=== PATIENT | female | born 1980 | race Caucasian/White ===

== ENCOUNTER 2018-08-17 13:53 | Emergency (ER) | payer OTHER ==
[~2018-08-17] VITALS: Ht 154.9 cm; Wt 103.4 kg
[2018-08-17] MEDS ORDERED: [UNRECOGNIZED DRUG - OTHER] (14:17)
[2018-08-17] MEDS ORDERED: HYDROCHLOROTHIAZIDE (14:17)
== END 2018-08-17 19:32 | disposition home or self-care (01) ==
LOC: ER 13:53
DX: N39.8 Other specified disorders of urinary system (principal)